=== PATIENT | female | born 1990 | race Caucasian/White ===

== ENCOUNTER 2016-08-29 01:25 | Outpatient (CLI) | payer MEDICAID | END 2016-08-29 01:26 | disposition critical access hospital (66) | DX: T40.994A Poisoning by other psychodysleptics [hallucinogens], undetermined, initial encounter (principal); F12.99 Cannabis use, unspecified with unspecified cannabis-induced disorder | CPT/HCPCS: A0425; A0427 ==

== ENCOUNTER 2016-08-29 01:59 | Emergency (ER) | payer MEDICAID ==
[2016-08-29] MEDS ORDERED: SODIUM CHLORIDE 0.9% 1,000 ML IV ONE (02:07)
== END 2016-08-29 08:50 | disposition home or self-care (01) ==
DX: F16.951 Hallucinogen use, unspecified with hallucinogen-induced psychotic disorder with hallucinations (principal); F12.90 Cannabis use, unspecified, uncomplicated; F32.9 Major depressive disorder, single episode, unspecified